=== PATIENT | female | born 1960 | race Caucasian/White ===

== ENCOUNTER → 2023-08-07 12:32 | Outpatient (REF) | payer OTHER, SELFPAY | LOC: DHCBC/DCA 12:32 | PROVIDERS: ATTENDING PHYSICIAN Internal Medicine Cardiovascular Disease; FAMILY PHYSICIAN Family Medicine | DX: I50.32 Chronic diastolic (congestive) heart failure (principal) | CPT/HCPCS: 78452; 93017; A9500; J2785 ==

== ENCOUNTER → 2023-08-08 07:23 | Outpatient (REF) | payer OTHER, SELFPAY ==
[2023-08-08 07:55] VITALS: BP 97/73
[2023-08-08 08:33] LABS: % Basophils 2.3 % (0-2); % Eosinophils 1.4 % (0-6); % Immature Granulocytes 0.2 % (0-0.5); % Lymphocytes 25.8 % (20.5-51.1); % Monocytes 9.2 % (1.7-9.3); % Neutrophils 61.1 % (42.2-75.2); Absolute Basophils 0.1 10^3/uL (0-0.2); Absolute Eosinophils 0.1 10^3/uL (0-0.7); Absolute Lymphocytes 1.5 10^3/uL (1.2-3.4); Absolute Monocytes 0.5 10^3/uL (0.1-0.6); Absolute Neutrophils 3.5 10^3/uL (1.4-6.5); Hematocrit 25.2 % (37.0-47.0); Hemoglobin 8.3 g/dL (12.0-16.0); Mean Corp Hgb Conc. 32.9 g/dL (33.0-37.0); Mean Corpuscular Hgb 27.1 pg (27.0-31.0); Mean Corpuscular Volume 82.4 fL (81.0-99.0); Mean Platelet Volume 10.8 fL (7.4-10.4); Nucleated Red Blood Cells % 0 %; Platelet Count 399 10^3/uL (130-400); Red Blood Cell Count 3.06 10^6/uL (4.20-5.40); Red Cell Dist. Width 18.4 % (11.5-14.5); White Blood Cell Count 5.7 10^3/uL (4.8-10.8)
[2023-08-08] MEDS: ATIVAN 0.5 MG IV (08:42)
[2023-08-08] MEDS: NSS (PRESERVATIVE FREE) 0.25 ML IV (08:42)
[2023-08-08] MEDS: FLUSH (NSS) 1 FLUSH IV (08:43)
[2023-08-08 08:52] LABS: INR 1.13; PT 14.3 Sec (11.4-14.6)
[2023-08-08 09:25] VITALS: BP 107/72; BP_SYST 94
[2023-08-08 09:30] VITALS: BP 101/77; BP_SYST 94
[2023-08-08 09:35] VITALS: BP 109/78; BP_SYST 93
[2023-08-08 09:55] VITALS: BP 104/77
== END ==
LOC: RADI 07:23
PROVIDERS: ATTENDING PHYSICIAN Internal Medicine Hematology & Oncology; FAMILY PHYSICIAN Family Medicine
DX: D64.9 Anemia, unspecified (principal); D68.8 Other specified coagulation defects
CPT/HCPCS: 88305; 88311; 88312; 36415; 38222; 77012; 85025; 85610; 88313; 88341; 88342

== ENCOUNTER → 2024-01-12 06:38 | Day surgery (SDC) | payer OTHER, SELFPAY | LOC: GI 06:38 | PROVIDERS: ATTENDING PHYSICIAN Internal Medicine | DX: K57.30 Diverticulosis of large intestine without perforation or abscess without bleeding (principal); K63.5 Polyp of colon; K31.89 Other diseases of stomach and duodenum; D50.9 Iron deficiency anemia, unspecified; Z98.84 Bariatric surgery status; Z98.0 Intestinal bypass and anastomosis status | CPT/HCPCS: 45380; 43239; 88305; 88342 ==

== ENCOUNTER 2024-03-02 10:28 | Emergency (ER) | payer OTHER, SELFPAY ==
[2024-03-02 10:31] VITALS: BP 104/72
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
[2024-03-02] MEDS: NORCO 5/325 1 TABLET PO (11:33)
[2024-03-02 11:46] VITALS: BMI 21.1
== END 2024-03-02 12:07 | disposition home or self-care (01) ==
LOC: EMR 10:28
PROVIDERS: EMERGENCY PHYSICIAN Emergency Medicine; FAMILY PHYSICIAN Family Medicine
DX: S80.02XA Contusion of left knee, initial encounter (principal); W01.0XXA Fall on same level from slipping, tripping and stumbling without subsequent striking against object, initial encounter; Y93.01 Activity, walking, marching and hiking; I48.91 Unspecified atrial fibrillation; F41.8 Other specified anxiety disorders; E03.9 Hypothyroidism, unspecified; Z90.710 Acquired absence of both cervix and uterus; Z96.652 Presence of left artificial knee joint; Z98.84 Bariatric surgery status
CPT/HCPCS: 99283; 29505; 73564

== ENCOUNTER → 2024-06-08 08:06 | Outpatient (REF) | payer OTHER, SELFPAY | LOC: WDC 08:06 | PROVIDERS: ATTENDING PHYSICIAN Family Medicine | DX: Z12.31 Encounter for screening mammogram for malignant neoplasm of breast (principal) | CPT/HCPCS: 77063; 77067 ==

== ENCOUNTER → 2024-09-30 07:28 | Outpatient (REF) | payer OTHER, SELFPAY | LOC: RAD 07:28 | PROVIDERS: ATTENDING PHYSICIAN Family Medicine | DX: M81.0 Age-related osteoporosis without current pathological fracture (principal) | CPT/HCPCS: 77080 ==

== ENCOUNTER → 2024-11-10 09:07 | Outpatient (REF) | payer OTHER, SELFPAY | LOC: RAD 09:07 | PROVIDERS: ATTENDING PHYSICIAN Student in an Organized Health Care Education/Training Program; FAMILY PHYSICIAN Family Medicine | DX: K74.3 Primary biliary cirrhosis (principal); M81.0 Age-related osteoporosis without current pathological fracture; R29.890 Loss of height; R74.8 Abnormal levels of other serum enzymes | CPT/HCPCS: 72040; 72072; 72114 ==

== ENCOUNTER 2025-05-13 15:10 | Inpatient (IN) | payer OTHER, SELFPAY ==
[2025-05-13] VITALS (19 sets, daily range): BP systolic 95–116; BP diastolic 65–83; PULSE 85–108; BMI 22.0; BMI 20.9
--- NOTE | 2025-05-13 09:03 | EDRN ---
Madai IRVIN in room w/ pt.
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
[2025-05-13 10:18] LABS: D-Dimer 2.00 ug/mlFEU (0.00-0.50)
[2025-05-13 10:50] LABS: Hematocrit 27.6 % (37.0-47.0); Hemoglobin 9.2 g/dL (12.0-16.0); Mean Corp Hgb Conc. 33.3 g/dL (33.0-37.0); Mean Corpuscular Volume 103.4 fL (81.0-99.0); Nucleated Red Blood Cells % 0 %; Platelet Count 380 10^3/uL (130-400); Red Cell Dist. Width 14.7 % (11.5-14.5)
--- NOTE | 2025-05-13 10:52 | EDRN ---
Attempted IV access in R AC w/ #20 P at 9:30 only able to obtain 2 tubes of blood which were sent to lab unable to thread IV so had to discontinue it. At 9:50 again attempted for IV access in R AC but unable to get any labs and pt claimed pain on
flushing IV so had to be discontinued. Not seeing any other veins to try this RN TT'd VAT RN. VAT RN obtained access #22 P in R hand though D-Dimer is up so need CT PE study so Reattempted #20 P IV access in L AC and successful. TT sent to [facility].
Eddie IRVIN so pt is ready for CT PE study now.
[2025-05-13] MEDS: ATIVAN 1 MG PO (11:11)
[2025-05-13 11:16] LABS: Troponin I 0.018 ng/ml
[2025-05-13 11:28] LABS: ALT (SGPT) 21 U/L (0-35); AST (SGOT) 35 U/L (14-36); Albumin 2.2 g/dl (3.5-5.0); Alkaline Phosphatase 214 U/L (38-126); Blood Urea Nitrogen 13 mg/dl (7-17); Calcium 7.8 mg/dl (8.4-10.2); Carbon Dioxide 32 mmol/L (22-30); Chloride 103 mmol/L (98-107); Estimated Creatinine Clearance 66 ml/min; Glucose 80 mg/dl (70-99); Lipase 18 U/L (23-300); Magnesium 1.8 mg/dl (1.6-2.3); Potassium 4.2 mmol/L (3.5-5.1); Sodium 133 mmol/L (135-145); Total Protein 5.4 g/dl (6.3-8.2); eGFR > 60.00
--- NOTE | 2025-05-13 11:40 | EDRN ---
Pt had sl lightheadedness on standing.
[2025-05-13 12:45] LABS: Folate 4.7 ng/ml (2.76-20); Vitamin B12 944 pg/ml (239-931)
--- NOTE | 2025-05-13 13:31 | EDRN ---
Madai IRVIN was in to see pt. Pt is awaiting admission.
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
--- NOTE | 2025-05-13 14:20 | EDRN ---
Resident MD Dr. Gant in to see pt.
--- NOTE | 2025-05-13 14:25 | EDRN ---
Pt unable to get OOB to [facility] and due to lasix to be administered pt placed on purewyck at this time.
[2025-05-13] MEDS: LASIX 20 MG IV (14:29)
--- NOTE | 2025-05-13 15:19 | CM ---
Addendum entered by Zari Greene 05/13/25 16:14:
Patient changed to INP status per physician and cardiac RETAIL EXPERIENCE SPECIALIST.
Original Note:
Patient seen at bedside in ED with patient family. Patient states that she lives in a 2 story home with a walker, rollator and cane. Patient PCP is Dr. Mercado and she uses the [facility] on [address]. Patient plan is for discharge home with VN vs home with
no needs. Patient has had home health from [facility] in the past. Patient is a volunteer here at for many years.
Patient is being admitted as OBS/Rowan. CM will provide OBS/ROWAN form and provide signed form to [facility]. CM will continue to follow for discharge planning needs.
Plan; home with VN vs home with no needs.
[2025-05-13] MEDS: NORCO 5/325 1 TABLET PO ×2 (15:26→21:08)
--- NOTE | 2025-05-13 15:52 | CON.CAR ---
Addendum entered and electronically signed by Ricardo Smalls MD 05/13/25 16:49:
Patient seen and examined
Agree with CAMRON Dixon's note and assessment
Agree with CAMRON Dixon's plan
Reviewed prior records and discussed with patient and at the bedside details of clinical course
Exam:
Alert and x 3
Nonfocal neurologically
JVP is relatively 6
Cor regular no murmurs rubs or gallops
Lungs diminished at the bases bilaterally no respiratory distress
Abdomen soft nontender positive bowel sounds
Trace extremity edema
Primary Rubber Stamp Die Inspector: Dr. Angélica Mcmillan
Assessment:
Presentation with APARICIO, LE edema
Acute on chronic HFpEF
Left anterior fascicular block
History of AVNRT with distant ablation
Moderate coronary calcifications previously seen on CT scan
Hyperlipidemia, history of statin intolerance
History of pulmonary nodule
Chronic anemia
History of thrombocytosis
History of complicated exploratory laparotomy, lysis of adhesions, ileocecectomy, repair gastrotomy with bilateral transversus abdominis myofascial releases and open repair of incisional hernia with mesh 2020
History of cirrhosis/alcoholism
History of gastric bypass surgery
ECHO 03/04/23: EF 61%, mild MR, mild MAC, mild AR, mild TR, PAP 27 mmHg
Plan:
- Patient presents with symptoms of dyspnea on exertion and lower extremity edema, worsening over the last several weeks. proBNP 1330 and chest x-ray with evidence of small bilateral pleural effusions consistent with acute heart failure
exacerbation.
- Agree with diuresis with IV Lasix. She was taking 20 mg p.o. as needed in the outpatient setting. Creatinine stable. She received dose of IV Lasix in ER and is responding well. Would be reasonable to consider low-dose daily Lasix 20 mg daily
at discharge.
- CHF education. Discussed fluid and salt restricted diet. She also has history of gastric bypass surgery with overall weight loss and prior issues with malnutrition. Will consult dietary. Patient requests clear ensure BID
- Last echo from 02/2023 with results as above, will repeat
- Follow on telemetry. EKG reviewed, sinus rhythm with LAFB. She has history of AVNRT with prior distant ablation
- She is listed as being on Lopressor 25 mg daily as outpatient. Would consider transitioning to Toprol 25 mg daily as BP able to tolerate
- Check TSH
- Discussed with patient and at bedside
Original Note:
Consultation
Consultation Request
Date/Time Consultation Performed: 05/13/25
Requesting Provider: Dr. Do
Performing Provider: Lois Dixon PA-C for Dr. Smalls
Reason for Consultation: CHF
Medical History
-
Chief Complaint: SOB
History of Present Illness:
Patient is a 64-year-old female with past medical history of chronic heart failure with preserved EF, known left anterior fascicular block, hyperlipidemia, history of AVNRT with prior distant ablation, moderate coronary calcifications previously
seen on CT scan with history of statin intolerance, who presented to [facility] for evaluation of dyspnea on exertion. She reports this has been progressively worsening over the last couple weeks. She reports associated lower extremity edema. She
reports overall over the last several weeks she has noted weight loss, however has not weighed herself since noting worsening edema. She states she takes furosemide 20 mg on an as needed basis only. She is unsure of her dry weight, stating at 1
point she was down to 104, however also throws out 108. She also reports last week she had a fall where she tripped over the threshold to her bathroom and hit her breastbone on the bathtub. She denies loss of consciousness with the event. proBNP
1330. Chest x-ray with evidence of small bilateral pleural effusions.
PMH:
Chronic HFpEF
Left anterior fascicular block
History of AVNRT with distant ablation
Moderate coronary calcifications previously seen on CT scan
Hyperlipidemia, history of statin intolerance
History of pulmonary nodule
Chronic anemia
History of thrombocytosis
History of complicated exploratory laparotomy, lysis of adhesions, ileocecectomy, repair gastrotomy with bilateral transversus abdominis myofascial releases and open repair of incisional hernia with mesh 2020
History of cirrhosis/alcoholism
History of gastric bypass surgery
Past Medical History
Past Medical History: Other (in HPI)
Social History
Tobacco: Former Smoker
Alcohol: Occasional
Personal:
Living: With Family
Family History
Family History: Cancer
Allergies / Home Medications
Allergy/AdvReac Type Severity Reaction Status Date / Time
mollusks Allergy Vomiting Verified 05/13/25 08:14
Penicillins Allergy Hives Verified 05/13/25 08:14
shellfish derived Allergy CLAMS-VOMIT Verified 05/13/25 08:14
ING
Mdpkzoq-IIJ-QgQ Reductase Allergy MUSCLE Verified 05/13/25 08:14
Inhibitor (Palvaps-Xmq-Gji CRAMPS
Reductase Inhibitor)
�Medication �Instructions �Recorded �Confirmed �Type
ursodiol 500 mg tablet 500 mg PO BID Urinary issue 08/02/20 05/13/25 History
omeprazole 40 mg capsule,delayed 40 mg PO DAILY Gastrointestinal 11/23/20 05/13/25 History
release issue
vitamin E (dl, acetate) 180 mg 400 units PO DAILY Supplement 11/23/20 05/13/25 History
(400 unit) capsule
cholecalciferol (vitamin D3) 50 50 mcg PO DAILY Supplement ##0 12/29/20 05/13/25 History
mcg (2,000 unit) capsule (Vitamin
D3)
cyanocobalamin (vitamin B-12) 2,000 mcg PO DAILY Supplement 01/05/21 05/13/25 History
1,000 mcg tablet
levothyroxine 50 mcg tablet 50 mcg PO DAILY AT 0700 Thyroid 01/05/21 05/13/25 History
metoprolol tartrate 25 mg tablet 25 mg PO DAILY 11/26/22 05/13/25 History
multivitamin 1 tab PO DAILY 11/26/22 05/13/25 History
ezetimibe 10 mg tablet (Zetia) 10 mg PO DAILY 08/08/23 05/13/25 History
hydrocodone 5 mg-acetaminophen 325 1 tab PO TID 05/13/25 05/13/25 History
mg tablet
venlafaxine 150 mg 150 mg PO DAILY Mental 05/13/25 05/13/25 History
capsule,extended release 24 hr Health/Anxiety
(Effexor XR)
venlafaxine 37.5 mg 37.5 mg PO DAILY Mental 05/13/25 05/13/25 History
capsule,extended release 24 hr Health/Anxiety
(Effexor XR)
Review of Systems
-
History Source: Patient and Family
All other systems: Negative unless noted
Physical Exam
Vital Signs
Temp Pulse Resp BP Pulse Ox
97.8 F 101 15 102/70 99
05/13/25 08:15 05/13/25 15:15 05/13/25 15:15 05/13/25 15:00 05/13/25 14:45
Lab Results
05/13/25 10:43
05/13/25 10:43
Troponin I 0.018 ng/ml 05/13/25 10:43
Gaa-L-Mhquywcwizh Pept 1330 pg/ml 05/13/25 10:43
Physical Exam
General: No Apparent Distress, Comfortable and Other (cachectic)
HEENT: Normocephalic, Anicteric and Moist Mucous Membranes
Respiratory: Crackles and Non Labored Respirations
Cardiac: S1/S2, Regular Rhythm and Other (tachy)
GI: Soft, Non Tender, Non Distended and Normal Bowel Sounds
Musculoskeletal: No Clubbing, No Cyanosis and Edema (2-3+ edema of B/L LE)
Skin: Warm and Dry
Neuro: AO x 3
Impression / Plan
-
Primary Rubber Stamp Die Inspector: Dr. Angélica Mcmillan
Assessment:
Presentation with APARICIO, LE edema
Acute on chronic HFpEF
Left anterior fascicular block
History of AVNRT with distant ablation
Moderate coronary calcifications previously seen on CT scan
Hyperlipidemia, history of statin intolerance
History of pulmonary nodule
Chronic anemia
History of thrombocytosis
History of complicated exploratory laparotomy, lysis of adhesions, ileocecectomy, repair gastrotomy with bilateral transversus abdominis myofascial releases and open repair of incisional hernia with mesh 2020
History of cirrhosis/alcoholism
History of gastric bypass surgery
ECHO 03/04/23: EF 61%, mild MR, mild MAC, mild AR, mild TR, PAP 27 mmHg
Plan:
- Patient presents with symptoms of dyspnea on exertion and lower extremity edema, worsening over the last several weeks. proBNP 1330 and chest x-ray with evidence of small bilateral pleural effusions consistent with acute heart failure
exacerbation.
- Agree with diuresis with IV Lasix. She was taking 20 mg p.o. as needed in the outpatient setting. Creatinine stable. She received dose of IV Lasix in ER and is responding well
- CHF education. Discussed fluid and salt restricted diet. She also has history of gastric bypass surgery with overall weight loss and prior issues with malnutrition. Will consult dietary. Patient requests clear ensure BID
- Last echo from 02/2023 with results as above, will repeat
- Follow on telemetry. EKG reviewed, sinus rhythm with LAFB. She has history of AVNRT with prior distant ablation
- She is listed as being on Lopressor 25 mg daily as outpatient. Would consider transitioning to Toprol 25 mg daily as BP able to tolerate
- Unclear if candidate for SGLT2 inhibitor, but would consider
- Check TSH
- Discussed with patient and at bedside
- Discussed with hospitalist service
Data Reviewed
-
EKG: Tracing Personally Visualized and interpreted
Radiology: Report Reviewed by me
Medical Tests (Nuc Med, Echo etc): Report Reviewed by me
Labs: Labs Reviewed by me
Old Records: Reviewed
--- NOTE | 2025-05-13 16:25 | EDRN ---
Pt attempting to order supper at this time.
[2025-05-13] MEDS: ZOFRAN 4 MG IV (18:28)
--- NOTE | 2025-05-13 18:34 | EDRN ---
Pt having nausea after eating only half a sandwich of her dinner. Pt medicated after verbal order from Dr. Do for 4 mg of IV zofran.
--- NOTE | 2025-05-13 19:30 | PTCARENOTE ---
Received patient from ED. Patient AAOx3, ambulated to the bedside with one assist. Patient assessed. VSS. Sinus rhythm, Sinus tach on the monitor. Patient oriented to the unit. Call cummings in reach. Patient verbalized an understanding to ring for all
transfers. Bed alarm placed for safety.
[2025-05-13] MEDS: PROTONIX 40 MG PO (20:14)
[2025-05-13] MEDS: ZETIA 10 MG PO (20:14)
[2025-05-13] MEDS: VITAMIN B-12 2000 MCG PO (20:14)
[2025-05-13] MEDS: URSO PO (20:15)
[2025-05-14 03:36] VITALS: BP 102/67
[2025-05-14] MEDS: SYNTHROID 50 MCG PO (05:28)
[2025-05-14 06:00] VITALS: BMI 21.1
[2025-05-14 06:11] LABS: Hematocrit 28.1 % (37.0-47.0); Hemoglobin 9.5 g/dL (12.0-16.0); Mean Corp Hgb Conc. 33.8 g/dL (33.0-37.0); Mean Corpuscular Volume 101.8 fL (81.0-99.0); Nucleated Red Blood Cells % 0 %; Platelet Count 395 10^3/uL (130-400); Red Cell Dist. Width 15.2 % (11.5-14.5)
[2025-05-14 06:34] LABS: ALT (SGPT) 20 U/L (0-35); AST (SGOT) 30 U/L (14-36); Albumin 2.1 g/dl (3.5-5.0); Alkaline Phosphatase 198 U/L (38-126); Blood Urea Nitrogen 13 mg/dl (7-17); Calcium 7.6 mg/dl (8.4-10.2); Carbon Dioxide 31 mmol/L (22-30); Chloride 104 mmol/L (98-107); Estimated Creatinine Clearance 66 ml/min; Glucose 63 mg/dl (70-99); Potassium 3.9 mmol/L (3.5-5.1); Sodium 136 mmol/L (135-145); Total Protein 5.1 g/dl (6.3-8.2); eGFR > 60.00
[2025-05-14 07:00] VITALS: BP 95/63
[2025-05-14] MEDS: VITAMIN B-12 2000 MCG PO (08:34)
[2025-05-14] MEDS: VITAMIN D3 (cholecalciferol) 50 MCG PO (08:34)
[2025-05-14] MEDS: ZETIA 10 MG PO (08:34)
[2025-05-14] MEDS: THERAGRAN 1 TABLET PO (08:34)
[2025-05-14] MEDS: URSO 500 MG PO ×2 (08:35→20:18)
[2025-05-14] MEDS: EFFEXOR XR 150 MG PO (08:35)
[2025-05-14] MEDS: NORCO 5/325 1 TABLET PO ×3 (08:35→22:22)
[2025-05-14] MEDS: VITAMIN E 400 UNITS PO (08:35)
[2025-05-14] MEDS: EFFEXOR XR 37.5 MG PO (08:35)
--- NOTE | 2025-05-14 08:37 | W.PN.HOSP.TC ---
Today's Communication/Plan
-
see plan
Assessment / Plan
Assessment / Plan
Gen: NAD, AAOx3, appears chronically ill and malnourished.
Eyes: EOMI, PERRLA, no scleral icterus.
Neck: supple.
CV: RRR, +S1/S2, no m/r/g.
Resp: faint rales and dec BS R base.
Abd: +BS, soft, NT, ND
Skin: No rashes.
Neuro: CN 2-12 intact, non-focal.
Psych: Normal mood and affect.
CT A/P:
1. No evidence of pulmonary embolism or thoracic aortic dissection.
2. Small bilateral pleural effusions, right greater than left.
3. Minimal hazy opacity at the right lung base, which may represent pneumonia or subsegmental atelectasis.
4. Mild diffuse soft tissue anasarca.
5. Mild coronary arterial calcification. Please correlate with symptoms of and risk factors for coronary artery disease, with further workup as clinically appropriate.
CT brain: No acute intracranial abnormality.
Acute HFpEF:
-proBNP 1330
-check echo
-s/p Lasix 20mg IV in the ER, further lasix dosing limited by BP
-saturating well on RA, currently not tachypneic
-with reports of lightheadedness check orthostatic vital signs (reported NEG on admission)
-start Midodrine 5mg PO TID to tx hypotension so that BB can be restarted and further lasix can be given
-cards following, discussed with cardiology
Other problems:
PAF: h/o ablation, not on AC [employer] (fall risk), holding home BB with hypotension
PBC: cont Ursodiol
Alcohol abuse disorder
Hypothyroidism: cont Levoxyl, TSH normal
Anxiety/Depression: cont Venlafaxine/Klonopin
GERD: cont PPI
HLD: cont Zetia
FULL/Lovenox
Total time spent on today's encounter was 50 minutes which included time spent in counseling the patient/family regarding diagnosis and treatment plan as listed above, goals of care, and symptom management. Case was discussed with nursing staff,
specialists, and care coordinators/case management. All labs and imaging personally reviewed by me. Remainder the time spent in detailed review of previous records, lab data, imaging, and other medical provider documentation.
Anticipated Discharge: 24 - 48 hours
Subjective/Interval History
-
Date of Service: May 14, 2025
Currently denies SOB.
Objective Data
-
Labs:
Laboratory Results
05/14/25
05:52
WBC 7.1
Hgb 9.5 L
Hct 28.1 L
Plt Count 395
Sodium 136
Potassium 3.9
Chloride 104
Carbon Dioxide 31 H
BUN 13
Creatinine 0.6
Glucose 63 L
Calcium 7.6 L
Total Bilirubin 0.3
AST 30
ALT 20
Alkaline Phosphatase 198 H
Vital Signs:
Vital Signs
Temp Pulse Resp BP Pulse Ox
98.3 F 111 18 95/63 98
05/14/25 07:00 05/14/25 07:00 05/14/25 07:00 05/14/25 07:00 05/14/25 07:00
I&O
05/13/25 05/14/25 05/15/25
06:59 06:59 06:59
Intake Total 240 / 240
Output Total 800 / 800
Balance -560 / -560
[2025-05-14] MEDS: PROTONIX PO (08:40)
[2025-05-14] MEDS: KLONOPIN 0.5 MG PO ×3 (10:04→22:22)
[2025-05-14 11:55] VITALS: BP 98/65
--- NOTE | 2025-05-14 13:06 | PTCARENOTE ---
Pt is refusing her Lovonox injections
--- NOTE | 2025-05-14 13:59 | W.PN.CARDCBS ---
Today's Communication / Plan
-
Start midodrine to augment blood pressure
Continued efforts for diuresis
Impression / Plan
-
Primary Mail Officer: Dr. Angélica Mcmillan
Assessment:
Presentation with APARICIO, LE edema
Acute on chronic HFpEF
Left anterior fascicular block
History of AVNRT with distant ablation
Moderate coronary calcifications previously seen on CT scan
Hyperlipidemia, history of statin intolerance
History of pulmonary nodule
Chronic anemia
History of thrombocytosis
History of complicated exploratory laparotomy, lysis of adhesions, ileocecectomy, repair gastrotomy with bilateral transversus abdominis myofascial releases and open repair of incisional hernia with mesh 2020
History of cirrhosis/alcoholism
History of gastric bypass surgery
ECHO 03/04/23: EF 61%, mild MR, mild MAC, mild AR, mild TR, PAP 27 mmHg
Plan:
- Patient presents with symptoms of dyspnea on exertion and lower extremity edema, worsening over the last several weeks. proBNP 1330 and chest x-ray with evidence of small bilateral pleural effusions consistent with acute heart failure
exacerbation.
-proBNP 1330
-She responded well to IV Lasix yesterday in the ER however blood pressures have been soft
-Not requiring supplemental O2
- Spoke with hospitalist and will start midodrine 5 mg 3 times daily for blood pressure during diuresis as well as initiating goal-directed medical therapy. Follow orthostatic blood pressure
- Will reassess blood pressure this afternoon and give another dose of Lasix IV 20 mg
- She was taking 20 mg p.o. as needed in the outpatient setting.
- Creatinine stable.
- CHF education.
-Plan to repeat echocardiogram on Friday.
- Follow on telemetry. EKG reviewed, sinus rhythm with LAFB. She has history of AVNRT with prior distant ablation
- Unclear if candidate for SGLT2 inhibitor, but would consider
-TSH 3.8
- Discussed with hospitalist service
Progress Note - Mail Officer
Subjective
Date of Service: May 14, 2025
Patient seen and examined overall feeling better with less shortness of breath since admission. No chest pain or pressure
Objective
Labs:
05/14/25 05:52
05/14/25 05:52
Labs
Hgb 9.5 g/dL (12.0-16.0) L 05/14/25 05:52
Hct 28.1 % (37.0-47.0) L 05/14/25 05:52
Plt Count 395 10^3/uL (130-400) 05/14/25 05:52
Sodium 136 mmol/L (135-145) 05/14/25 05:52
Potassium 3.9 mmol/L (3.5-5.1) 05/14/25 05:52
BUN 13 mg/dl (7-17) 05/14/25 05:52
Creatinine 0.6 mg/dL (0.6-1.0) 05/14/25 05:52
Glucose 63 mg/dl (70-99) L 05/14/25 05:52
Troponins
05/13/25
10:43
Troponin I 0.018
Vital Signs and I&O:
Vital Signs
Temp Pulse Resp BP Pulse Ox
99.2 F 80 18 98/65 98
05/14/25 11:55 05/14/25 11:55 05/14/25 07:00 05/14/25 11:55 05/14/25 11:55
Vital Signs
Temp Pulse Resp BP Pulse Ox
99.2 F 80 18 98/65 98
05/14/25 11:55 05/14/25 11:55 05/14/25 07:00 05/14/25 11:55 05/14/25 11:55
Intake & Output
05/12/25 05/13/25 05/14/25 05/15/25
06:59 06:59 06:59 06:59
Intake Total 240 / 240
Output Total 800 / 800
Balance -560 / -560
Physical Exam
Physical Exam
General: Awake alert and oriented. 64-year-old female who appears older than stated age; frail
HEENT: mmm
Respiratory: Bronchovesicular breath sounds, decreased at the bases with fine crackles
Cardiac: Regular. Positive S1-S2. No murmurs
GI: Soft, Non Tender, Non Distended and Normal Bowel Sounds
Musculoskeletal: ++ edema of B/L LE
[2025-05-14 15:35] VITALS: BP 105/70; BP 98/62; BP 99/69; PULSE 108; PULSE 111; PULSE 128
[2025-05-14 19:15] VITALS: BP 96/60
[2025-05-14 23:25] VITALS: BP 94/62
[2025-05-15] VITALS (7 sets, daily range): BP systolic 81–112; BP diastolic 51–76; PULSE 69; O2SAT 92; BMI 20.6
[2025-05-15] MEDS: SYNTHROID 50 MCG PO (06:02)
--- NOTE | 2025-05-15 08:28 | W.PN.HOSP.TC ---
Today's Communication/Plan
-
see plan
Assessment / Plan
Assessment / Plan
Gen: NAD, AAOx3, appears chronically ill and malnourished.
Eyes: EOMI, PERRLA, no scleral icterus.
Neck: supple.
CV: remains RRR, +S1/S2, no m/r/g.
Resp: faint rales and dec BS in the bases.
Abd: +BS, soft, NT, ND
Skin: No rashes.
Neuro: remains CN 2-12 intact, non-focal.
Psych: Normal mood and affect.
CT A/P:
1. No evidence of pulmonary embolism or thoracic aortic dissection.
2. Small bilateral pleural effusions, right greater than left.
3. Minimal hazy opacity at the right lung base, which may represent pneumonia or subsegmental atelectasis.
4. Mild diffuse soft tissue anasarca.
5. Mild coronary arterial calcification. Please correlate with symptoms of and risk factors for coronary artery disease, with further workup as clinically appropriate.
CT brain: No acute intracranial abnormality.
Acute HFpEF:
-proBNP 1330
-check echo
-s/p Lasix 20mg IV in the ER, further lasix dosing limited by BP
-saturating well on RA, currently not tachypneic
-orthostatic VS POS by HR 15
-Midodrine 5mg PO TID started, increase to 10mg PO BID to tx hypotension so that BB can be restarted and further lasix can be given
-cards following
Other problems:
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
PBC: cont Ursodiol
Alcohol abuse disorder
Hypothyroidism: cont Levoxyl, TSH normal
Anxiety/Depression: cont Venlafaxine/Klonopin
GERD: cont PPI
HLD: cont Zetia
Hyponatremia, resolved
RN updated, discussed with cards
FULL/Lovenox
Anticipated Discharge: 24 - 48 hours
Subjective/Interval History
-
Date of Service: May 15, 2025
Denies SOB.
Objective Data
-
Vital Signs:
Vital Signs
Temp Pulse Resp BP Pulse Ox
97.9 F 90 18 95/62 98
05/15/25 06:59 05/15/25 06:59 05/15/25 06:59 05/15/25 06:59 05/15/25 06:59
I&O
05/14/25 05/15/25 05/16/25
06:59 06:59 06:59
Intake Total 240 / 240 860 / 860
Output Total 800 / 800 375 / 375
Balance -560 / -560 485 / 485
[2025-05-15] MEDS: VITAMIN B-12 2000 MCG PO (08:31)
[2025-05-15] MEDS: KLONOPIN 0.5 MG PO ×3 (08:31→21:27)
[2025-05-15] MEDS: URSO 500 MG PO ×2 (08:31→20:07)
[2025-05-15] MEDS: VITAMIN E 400 UNITS PO (08:31)
[2025-05-15] MEDS: NORCO 5/325 1 TABLET PO ×3 (08:32→21:27)
[2025-05-15] MEDS: PROTONIX PO (08:32)
[2025-05-15] MEDS: ZETIA 10 MG PO (08:32)
[2025-05-15] MEDS: EFFEXOR XR 37.5 MG PO (08:32)
[2025-05-15] MEDS: EFFEXOR XR 150 MG PO (08:32)
[2025-05-15] MEDS: VITAMIN D3 (cholecalciferol) 50 MCG PO (08:32)
[2025-05-15] MEDS: THERAGRAN 1 TABLET PO (08:36)
--- NOTE | 2025-05-15 12:28 | W.PN.CARDCBS ---
Today's Communication / Plan
-
Add midodrine
Add compression stockings
Hopefully can give another dose of IV Lasix this afternoon
Echocardiogram on Friday
Impression / Plan
-
Primary Dean Of Girls: Dr. Angélica Mcmillan
Assessment:
Presentation with APARICIO, LE edema
Acute on chronic HFpEF
Left anterior fascicular block
History of AVNRT with distant ablation
Moderate coronary calcifications previously seen on CT scan
Hyperlipidemia, history of statin intolerance
History of pulmonary nodule
Chronic anemia
History of thrombocytosis
History of complicated exploratory laparotomy, lysis of adhesions, ileocecectomy, repair gastrotomy with bilateral transversus abdominis myofascial releases and open repair of incisional hernia with mesh 2020
History of cirrhosis/alcoholism
History of gastric bypass surgery
ECHO 03/04/23: EF 61%, mild MR, mild MAC, mild AR, mild TR, PAP 27 mmHg
Plan:
- Patient presents with symptoms of dyspnea on exertion and lower extremity edema, worsening over the last several weeks. proBNP 1330 and chest x-ray with evidence of small bilateral pleural effusions consistent with acute heart failure
exacerbation.
-proBNP 1330
-She responded well to IV Lasix yesterday in the ER
- Not requiring supplemental O2
-Low blood pressures have prevented us from giving further IV Lasix however weights continue to decrease.
- Agree with increasing midodrine to 10 mg TID which was already done by hospitalist
- Monitor orthostatics
- Will reassess blood pressure this afternoon and give another dose of Lasix IV 20 mg
- She was taking 20 mg p.o. as needed in the outpatient setting.
- Creatinine stable.
- CHF education.
-Plan to repeat echocardiogram on Friday.
- Follow on telemetry. EKG reviewed, sinus rhythm with LAFB. She has history of AVNRT with prior distant ablation
- Will add SGLT2 inhibitor if not cost prohibitive. Case management consulted
-TSH 3.8
Progress Note - Dean Of Girls
Subjective
Date of Service: May 15, 2025
Seen and examined sitting out of bed to chair. She states that she feels so much better and denies chest pain or pressure, shortness of breath with room ambulation and improved cough. No dizziness or lightheadedness.
Objective
Labs:
05/14/25 05:52
05/14/25 05:52
Labs
Hgb 9.5 g/dL (12.0-16.0) L 05/14/25 05:52
Hct 28.1 % (37.0-47.0) L 05/14/25 05:52
Plt Count 395 10^3/uL (130-400) 05/14/25 05:52
Sodium 136 mmol/L (135-145) 05/14/25 05:52
Potassium 3.9 mmol/L (3.5-5.1) 05/14/25 05:52
BUN 13 mg/dl (7-17) 05/14/25 05:52
Creatinine 0.6 mg/dL (0.6-1.0) 05/14/25 05:52
Glucose 63 mg/dl (70-99) L 05/14/25 05:52
Troponins
05/13/25
10:43
Troponin I 0.018
Vital Signs and I&O:
Vital Signs
Temp Pulse Resp BP Pulse Ox
97.9 F 90 18 95/62 98
05/15/25 06:59 05/15/25 06:59 05/15/25 06:59 05/15/25 06:59 05/15/25 11:23
Vital Signs
Temp Pulse Resp BP Pulse Ox
97.9 F 90 18 95/62 98
05/15/25 06:59 05/15/25 06:59 05/15/25 06:59 05/15/25 06:59 05/15/25 11:23
Intake & Output
05/13/25 05/14/25 05/15/25 05/16/25
06:59 06:59 06:59 06:59
Intake Total 240 / 240 860 / 860
Output Total 800 / 800 375 / 375
Balance -560 / -560 485 / 485
Physical Exam
Physical Exam
General: Awake alert and oriented. 64-year-old female who appears older than stated age; frail
HEENT: mmm
Respiratory: Bronchovesicular breath sounds, decreased at the bases with fine crackles
Cardiac: Regular. Positive S1-S2. No murmurs
GI: Soft, Non Tender, Non Distended and Normal Bowel Sounds
Musculoskeletal: +edema of B/L LE
[2025-05-15] MEDS: FLUSH (NSS) 2 FLUSH IV ×2 (13:05→17:12)
[2025-05-15] MEDS: ZOFRAN 4 MG IV (13:05)
--- NOTE | 2025-05-15 15:39 | CM ---
CM consult for med pricing
Call to [facility] and closed on Sundays [phone]
CM to follow up during business hours
[2025-05-15] MEDS: LASIX 20 MG IV (17:32)
[2025-05-16] VITALS (7 sets, daily range): BP systolic 82–118; BP diastolic 48–79; PULSE 78–103; O2SAT 95–96; BMI 20.3
[2025-05-16] MEDS: SYNTHROID 50 MCG PO (05:32)
[2025-05-16 07:22] LABS: Hematocrit 28.3 % (37.0-47.0); Hemoglobin 9.8 g/dL (12.0-16.0); Mean Corp Hgb Conc. 34.6 g/dL (33.0-37.0); Mean Corpuscular Volume 102.5 fL (81.0-99.0); Platelet Count 378 10^3/uL (130-400); Red Cell Dist. Width 15.6 % (11.5-14.5)
[2025-05-16] MEDS: ZETIA 10 MG PO (07:54)
[2025-05-16] MEDS: VITAMIN E 400 UNITS PO (07:54)
[2025-05-16] MEDS: NORCO 5/325 1 TABLET PO ×2 (07:54→15:58)
[2025-05-16] MEDS: EFFEXOR XR 150 MG PO (07:54)
[2025-05-16] MEDS: THERAGRAN 1 TABLET PO (07:54)
[2025-05-16] MEDS: URSO 500 MG PO (07:54)
[2025-05-16] MEDS: PROTONIX 40 MG PO (07:54)
[2025-05-16] MEDS: KLONOPIN 0.5 MG PO ×2 (07:54→15:58)
[2025-05-16] MEDS: VITAMIN D3 (cholecalciferol) 50 MCG PO (07:57)
[2025-05-16] MEDS: EFFEXOR XR 37.5 MG PO (07:57)
[2025-05-16] MEDS: VITAMIN B-12 2000 MCG PO (07:57)
[2025-05-16 08:19] LABS: Blood Urea Nitrogen 17 mg/dl (7-17); Calcium 7.4 mg/dl (8.4-10.2); Chloride 100 mmol/L (98-107); Estimated Creatinine Clearance 66 ml/min; Glucose 69 mg/dl (70-99); Potassium 4.1 mmol/L (3.5-5.1); Sodium 135 mmol/L (135-145); eGFR > 60.00
[2025-05-16 08:28] LABS: Carbon Dioxide 35 mmol/L (22-30)
--- NOTE | 2025-05-16 12:51 | W.PN.CARDCBS ---
Today's Communication / Plan
-
Given hypotension will hold off on Lasix for now
Continue midodrine
Case management to assess cost of Farxiga versus Jardiance
Impression / Plan
-
Primary Head Of Marketing Analytics: Dr. Angélica Mcmillan
Assessment:
Presentation with APARICIO, LE edema
Acute on chronic HFpEF
Left anterior fascicular block
History of AVNRT with distant ablation
Moderate coronary calcifications previously seen on CT scan
Hyperlipidemia, history of statin intolerance
History of pulmonary nodule
Chronic anemia
History of thrombocytosis
History of complicated exploratory laparotomy, lysis of adhesions, ileocecectomy, repair gastrotomy with bilateral transversus abdominis myofascial releases and open repair of incisional hernia with mesh 2020
History of cirrhosis/alcoholism
History of gastric bypass surgery
ECHO 03/04/23: EF 61%, mild MR, mild MAC, mild AR, mild TR, PAP 27 mmHg
Plan:
Volume status is difficult to ascertain
However blood pressure is 82 systolic and is currently off of oxygen
May be overdiuresed and will hold off on Lasix for now
Check echocardiogram
Case management to check on cost of Farxiga versus Jardiance
Progress Note - Head Of Marketing Analytics
Subjective
Date of Service: May 16, 2025
Complains of shortness of breath with standing.
Objective
Labs:
05/16/25 06:48
05/16/25 06:48
Labs
Hgb 9.8 g/dL (12.0-16.0) L 05/16/25 06:48
Hct 28.3 % (37.0-47.0) L 05/16/25 06:48
Plt Count 378 10^3/uL (130-400) 05/16/25 06:48
Sodium 135 mmol/L (135-145) 05/16/25 06:48
Potassium 4.1 mmol/L (3.5-5.1) 05/16/25 06:48
BUN 17 mg/dl (7-17) 05/16/25 06:48
Creatinine 0.6 mg/dL (0.6-1.0) 05/16/25 06:48
Glucose 69 mg/dl (70-99) L 05/16/25 06:48
Vital Signs and I&O:
Vital Signs
Temp Pulse Resp BP Pulse Ox
97.4 F 95 20 /63 96
05/16/25 11:50 05/16/25 11:50 05/16/25 11:50 05/16/25 11:50 05/16/25 11:50
Vital Signs
Temp Pulse Resp BP Pulse Ox
97.4 F 95 20 96
05/16/25 11:50 05/16/25 11:50 05/16/25 11:50 05/16/25 11:50 05/16/25 11:50
Intake & Output
05/14/25 05/15/25 05/16/25 05/17/25
06:59 06:59 06:59 06:59
Intake Total 240 / 240 860 / 860 1500 / 1500
Output Total 800 / 800 375 / 375
Balance -560 / -560 485 / 485 1500 / 1500
Physical Exam
Physical Exam
General: Well developed, well nourished in NAD.
Neck: Supple, no JVD, HJR, carotids +2 B/L, no bruits bilaterally.
Heart: Non displaced PMI, RRR, no murmurs, No S3, S4, no rubs.
Lungs: Scattered rhonchi
Extremities: No clubbing, cyanosis or edema bilaterally.
Neuro: Grossly nonfocal, awake, alert and oriented x3.
--- NOTE | 2025-05-16 13:40 | CM ---
CM following re: discharge planning.
Reviewed pt's chart, met with pt.
According to pt is medically stable to be discharged today. Pt is aware, expressed her agreement and she stated her will transport home. IMM reviewed, placed on chart, pt has a copy.
Updated PT and OT evaluations noted - home PT/OT recommended. Pt is aware, expressed her agreement and she preferred [facility]. A referral to [facility] made. Also, pt stated she will talk to her regarding VN services. CM encouraged the pt to accept VN
services
Please fax discharge instructions to [facility] at [phone]
D/C plan: home with [facility] and family support. to transport.
--- NOTE | 2025-05-16 14:16 | VNURNOTE ---
Home Health Liaison met with patient at bedside to discuss [facility] nurse/therapy, visits, schedule and homebound status. Explained to patient that visits at home are 2-3 x per week to assess and teach medical management. Patient is familiar with
services. Informed her that [facility] will contact them for start of care within a few days after discharge from . Provided contact number for [facility]. Patient on the fence about accepting VN. She wants to speak with her spouse. Explained to pt
that if she declines VN and then changes her mind after DC, would have to go through PCP to order Vn and there could be a few week delay.
[facility] referral completed in [facility], noted that pt wants to discuss w/spouse.
--- NOTE | 2025-05-16 14:36 | W.PN.HOSP.TC ---
Addendum entered and electronically signed by Ramakrishna Whipple MD 05/16/25 23:35:
Attending Addendum:
I saw and evaluated the patient. I reviewed the resident�s note and agree with findings and plan as documented in the resident�s note. Sub: feels much improved. Not dizzy on standing. Wants to go home. refusing SNF. Full 12 point ROS reviewed and
negative except as documented Exam: Vitals reviewed in chart GEN-NAD heart RRR lungs clear abd soft LE no edema
Plan:
#Acute HFpEF:
-resolved
-proBNP 1330
-echo-05/16- unchanged-Ejection fraction is 64%
-s/p Lasix 20mg IV x 2 now hypotensive
-hold lasix today
-not orthostatic
-increase Midodrine to 10mg PO TID hold home metoprolol
-cards following appreciate input ok to DC home with follow up restart lasix in am
Other problems:
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
PBC: cont Ursodiol
Alcohol abuse disorder
Hypothyroidism: cont Levoxyl, TSH normal
Anxiety/Depression: cont Venlafaxine atc Klonopin advised to taper off as OP
GERD: cont PPI
HLD: cont Zetia
Hyponatremia, resolved
FULL/Lovenox
Dispo DC home with HC today d/w CM
Time spent coordinating care, DC planning, review of DC plan of care with resident, transition of care, review of records, med rec/scripts sent electronically, consults, notes, d/w consultants, nursing, cards and CM� 32 mins >50% of this time was
devoted to counseling and coordination of care
Original Note:
Today's Communication/Plan
-
Ready for discharge home today with home PT
Continue daily Lasix 20 mg p.o.
Holding home metoprolol tartrate 25mg
Continue midodrine 10mg TID
Follow-up appointment scheduled with outpatient banking analyst for 06/08/2025
Assessment / Plan
Assessment / Plan
#Acute exacerbation HFpEF:
- Echo completed today ejection fraction is 64% by volumetric assessment.
- proBNP 1330 at admission
- Patient is received 2 doses of Lasix 20 mg IV since admission, has been limited because of hypotension
- saturating well on RA, currently not tachypneic
- orthostatic VS negative 05/16 BP 98/67 seated at 98/66 standing
- Midodrine increased to 10mg PO BID to tx hypotension
- cards following and agree okay for discharge with daily Lasix 20 mg and will help coordinate scheduling outpatient visit with banking analyst
#PAF
- h/o ablation, not on AC (fall risk)
- holding home beta-lion with hypotension
#PBC
- continue Ursodiol
#Hypothyroidism:
- Continue Levoxyl
- TSH normal
#Anxiety/Depression:
- Continue venlafaxine/Klonopin
#GERD:
- Continue PPI
#HLD:
- Continue Zetia
Anticipated Discharge: Today
Subjective/Interval History
-
Date of Service: May 16, 2025
Patient seen this morning seated at the bedside. Patient is overall doing well. Patient notes improvement in her shortness of breath, dizziness, although she still notes some mild shortness of breath on exertion. Patient denies headache, changes
in vision, chest pain, shortness of breath at rest, nausea, vomiting, cristiane pain, changes in bowel movements. Patient notes improvement in her lower extremity edema.
Objective Data
-
Labs:
Laboratory Results
05/16/25
06:48
WBC 4.9
Hgb 9.8 L
Hct 28.3 L
Plt Count 378
Sodium 135
Potassium 4.1
Chloride 100
Carbon Dioxide 35 H
BUN 17
Creatinine 0.6
Glucose 69 L
Calcium 7.4 L
Vital Signs:
Vital Signs
Temp Pulse Resp BP Pulse Ox
97.4 F 95 20 90/63 96
05/16/25 11:50 05/16/25 11:50 05/16/25 11:50 05/16/25 11:50 05/16/25 11:50
I&O
05/15/25 05/16/25 05/17/25
06:59 06:59 06:59
Intake Total 860 / 860 1500 / 1500
Output Total 375 / 375
Balance 485 / 485 1500 / 1500
Review of Systems
-
History Source: Patient
Constitutional: Reports No Symptoms
EENT: Reports No Symptoms Reported
Respiratory: Reports Other (mild SOB on exertion)
Cardiac: Reports No Symptoms
Abdomen/GI: Reports No Symptoms
Genitourinary: Reports No Symptoms
Musculoskeletal: Reports Joint Pain
Skin: Reports No Symptoms
Neuro: Reports No Symptoms
Physical Exam
-
General: No Apparent Distress and Appears Chronically Ill
HEENT: Normocephalic and Atraumatic
Respiratory: Clear to Auscultation
Cardiac: Regular Rhythm
GI: Soft, Nontender, Nondistended and Normal Bowel Sounds
Musculoskeletal: Other (Mild edema noted B/L lower extremities)
Skin: Warm and Dry
Neuro: AO x 3
Psych: Calm and Intact Judgement/Insight
--- NOTE | 2025-05-16 14:44 | PTCARENOTE ---
Patient ambulating in room with walker and supervision. Patient sitting in chair with no c/o pain at present. Patient has limited ROM of right shoulder and chronic pain.Schedule [place] given with good relief this am. Patient with skin tear on chest
from Red dot removal. Area cleaned with NSS, adaptic & silicone border foam applied. Patient eager to go home, patient refusing to be discharged to [facility]. Patient made physician aware.
--- NOTE | 2025-05-16 17:48 | W.DCSUMMARY ---
Addendum entered and electronically signed by Ramakrishna Whipple MD 05/16/25 23:35:
Read, reviewed, and agree. See same day progress note for additional details.
Jacky Whipple MD
Original Note:
Documented by User: Susy Bojorquez DO, Resident 05/16/25 19:19
Discharge Summary
Discharge Data
Date of Admission: 05/13/25
Date of Discharge: 05/16/25
-
Pending Results: No
Hospital Course
Primary diagnosis: Acute HFpEF exacerbation, hypotension
Secondary diagnoses: Atrial fibrillation s/p ablation, anxiety, depression, hypothyroidism, chronic anemia
Hospital course:
Patient is a 64-year-old female with past medical history of atrial fibrillation s/p ablation, anxiety, depression, thrombocytopenia, hypothyroidism, chronic anemia who presented to the ED on 05/13/2025 with shortness of breath, lightheaded and
dizziness. Patient has had multiple falls in the last month. Patient notes that the dyspnea has worsened in the last week and has also noted some lower extremity swelling bilaterally. Patient had taken 1 dose of her prn Lasix 20 mg for swelling a
week ago. Imaging in the ED: chest x-ray which showed a small right pleural effusion. Chest CT in the ED revealed no evidence of pulmonary embolism or thoracic aortic dissection, small bilateral pleural effusions, right greater than left, minimal
hazy opacity in the right lateral base which could represent pneumonia or subsegmental atelectasis. CT of the head which showed no acute intracranial abnormality. Labs in the ED: WBC 4.9, hemoglobin stable anemic 9.2, platelets 380, sodium 133
mmol/L, calcium 7.8 mg/dL alk phos 214 U/L, TSH 3.81, cardiac BNP of 1300. Vital signs unremarkable. Patient was admitted for suspected acute CHF exacerbation. 20 IV Lasix given in the ED. Cardiology was consulted at this time and echo was
ordered. Cardiology agreed with plan for diuresis with IV Lasix. Creatinine was stable. Patient was being followed on telemetry. EKG was reviewed showing sinus rhythm with LAFB. Due to continued hypotension, lasix were held and patient was
started on midodrine 5 mg p.o. 3 times daily to treat hypotension in the hopes that beta-lion could be restarted and further Lasix could be given. Midodrine dose increased to 10 mg p.o. 3 times daily. Patient's symptoms have returned to
baseline or completely resolved. Patient is feeling well enough to go home. Patient is being discharged home today. Physical therapy cleared her for home with home PT. Cardiology agrees that patient can go home continuing on daily midodrine 10 mg
3 times daily as well as Lasix 20 mg p.o. daily, with follow-up with Dr. Mcmillan scheduled for 06/08/2025.
Imaging:
05/13/25 Chest XRay
IMPRESSION:
Small right pleural effusion.
No acute osseous injury noted. If concerned of sternal fracture, chest CT examination recommended.
05/13/25 CT Head
IMPRESSION:
No acute intracranial abnormality.
05/13/25 CT Chest
IMPRESSION:
1. No evidence of pulmonary embolism or thoracic aortic dissection.
2. Small bilateral pleural effusions, right greater than left.
3. Minimal hazy opacity at the right lung base, which may represent pneumonia or subsegmental atelectasis.
4. Mild diffuse soft tissue anasarca.
5. Mild coronary arterial calcification. Please correlate with symptoms of and risk factors for coronary artery disease, with further workup as clinically appropriate.
Discharge Plan
-
Patient Disposition: Home (Routine Discharge)
Discharge Diagnosis/Procedures: acute on chronic CHFpEF exacerbation, hypotension, anxiety, depression, hypothyroidism, GERD
Condition: Fair
Diet: 2 Gram Sodium and Restrict fluids to 64 oz
Activity: As tolerated
Driving Restrictions: As prior to admission
Bathing Restrictions: None
Other Services: PT
Specialty Instructions: Weigh Daily- Call MD for wt gain/loss 3 lbs overnight/5 lbs in 1 week
Activity Restrictions/Additional Instructions:
Please get repeat BMP in one week and follow up with cardiology.
Referrals:
Angélica Mcmillan MD [Active, Cardiology] - 06/08/25 10:20 am
Referral Note: You have an appointment to see Dr. Mcmillan's physician medical staff assistant, Ashanti, at the [place] office on 06/08/2025 at 10:20 AM. You are then scheduled to see Dr. Angélica Mcmillan at the [place] office on 09/14/2024 at 11:20 AM.
Please call [phone] if you need to reschedule.
Mohsen Mercado MD [Family Provider, [facility]]
Prescriptions:
New
midodrine 5 mg Tablet
10 mg PO TID@0800,1300,1800 30 Days Qty: 180 0RF
furosemide [Lasix] 20 mg tablet
20 mg PO DAILY Qty: 30 0RF
(DME) Bmp
See Rx Instructions .ROUTE .MEDSUPPLY Qty: 1 0RF
Rx Instructions:
Dx: CHF
Please send results to crm consultant Dr. Mcmillan [facility]ology
Continued
ursodiol 500 MG tablet
500 mg PO BID
omeprazole 40 MG capsule,delayed release(DR/EC)
40 mg PO DAILY
vitamin E (dl, acetate) 400 UNITS capsule
400 units PO DAILY
cholecalciferol (vitamin D3) [Vitamin D3] 50 mcg (2,000 unit) Capsule
50 mcg PO DAILY Qty: 0
cyanocobalamin (vitamin B-12) 1,000 MCG tablet
2,000 mcg PO DAILY
levothyroxine 50 MCG tablet
50 mcg PO DAILY AT 0700
multivitamin Tablet
1 tab PO DAILY
ezetimibe [Zetia] 10 mg Tablet
10 mg PO DAILY
venlafaxine [Effexor XR] 37.5 mg Capsule,Extended Release 24hr
37.5 mg PO DAILY
hydrocodone-acetaminophen 5-325 mg Tablet
1 tab PO TID
venlafaxine [Effexor XR] 150 mg Capsule,Extended Release 24hr
150 mg PO DAILY
clonazepam [Klonopin] 0.5 mg Tablet
0.5 mg PO TID
Held
metoprolol tartrate 12.5 MG tablet
25 mg PO DAILY
Hold Instructions: Hold until you see your crm consultant at follow up appointment
Discharge Orders:
Discharge Patient (As Directed); Ordered 05/16/25
Ordered By: Susy Bojorquez
Discharge Date and Time
Discharge Date/Time: 05/16/25 18:36
Print Language: GUATEMALAN

Documented by User: Ramakrishna Whipple MD 05/16/25 23:29
Discharge Summary
Discharge Data
Date of Admission: 05/13/25
Date of Discharge: 05/16/25
Discharge Plan
-
Patient Disposition: Home (Routine Discharge)
Discharge Diagnosis/Procedures: acute on chronic CHFpEF exacerbation, hypotension, anxiety, depression, hypothyroidism, GERD
Condition: Fair
Diet: 2 Gram Sodium and Restrict fluids to 64 oz
Activity: As tolerated
Driving Restrictions: As prior to admission
Bathing Restrictions: None
Other Services: PT
Specialty Instructions: Weigh Daily- Call MD for wt gain/loss 3 lbs overnight/5 lbs in 1 week
Activity Restrictions/Additional Instructions:
Please get repeat BMP in one week and follow up with cardiology.
Referrals:
Angélica Mcmillan MD [Active, Cardiology] - 06/08/25 10:20 am
Referral Note: You have an appointment to see Dr. Mcmillan's physician medical staff assistant, Ashanti, at the [facility] on 06/08/2025 at 10:20 AM. You are then scheduled to see Dr. Angélica Mcmillan at the [place] office on 09/14/2024 at 11:20 AM.
Please call [phone] if you need to reschedule.
Mohsen Mercado MD [Family Provider, [facility]]
Prescriptions:
New
midodrine 5 mg Tablet
10 mg PO TID@0800,1300,1800 30 Days Qty: 180 0RF
furosemide [Lasix] 20 mg tablet
20 mg PO DAILY Qty: 30 0RF
(DME) Bmp
See Rx Instructions .ROUTE .MEDSUPPLY Qty: 1 0RF
Rx Instructions:
Dx: CHF
Please send results to crm consultant Dr. Mcmillan [facility]
Continued
ursodiol 500 MG tablet
500 mg PO BID
omeprazole 40 MG capsule,delayed release(DR/EC)
40 mg PO DAILY
vitamin E (dl, acetate) 400 UNITS capsule
400 units PO DAILY
cholecalciferol (vitamin D3) [Vitamin D3] 50 mcg (2,000 unit) Capsule
50 mcg PO DAILY Qty: 0
cyanocobalamin (vitamin B-12) 1,000 MCG tablet
2,000 mcg PO DAILY
levothyroxine 50 MCG tablet
50 mcg PO DAILY AT 0700
multivitamin Tablet
1 tab PO DAILY
ezetimibe [Zetia] 10 mg Tablet
10 mg PO DAILY
venlafaxine [Effexor XR] 37.5 mg Capsule,Extended Release 24hr
37.5 mg PO DAILY
hydrocodone-acetaminophen 5-325 mg Tablet
1 tab PO TID
venlafaxine [Effexor XR] 150 mg Capsule,Extended Release 24hr
150 mg PO DAILY
clonazepam [Klonopin] 0.5 mg Tablet
0.5 mg PO TID
Held
metoprolol tartrate 12.5 MG tablet
25 mg PO DAILY
Hold Instructions: Hold until you see your crm consultant at follow up appointment
Discharge Orders:
Discharge Patient (As Directed); Ordered 05/16/25
Ordered By: Susy Bojorquez
Discharge Date and Time
Discharge Date/Time: 05/16/25 18:36
Print Language: GUATEMALAN
== END 2025-05-16 18:36 | disposition home health service (06) | DRG 292 ==
LOC: 2 NORTH 15:10
PROVIDERS: Internal Medicine; Physician Assistant; Student in an Organized Health Care Education/Training Program; ADMITTING PHYSICIAN Hospitalist; ATTENDING PHYSICIAN Family Medicine; EMERGENCY PHYSICIAN Emergency Medicine; FAMILY PHYSICIAN Family Medicine; OTHER PHYSICIAN Internal Medicine Cardiovascular Disease
DX: I50.33 Acute on chronic diastolic (congestive) heart failure (principal); E46 Unspecified protein-calorie malnutrition; E87.1 Hypo-osmolality and hyponatremia; E03.9 Hypothyroidism, unspecified; F41.9 Anxiety disorder, unspecified; F32.A Depression, unspecified; K21.9 Gastro-esophageal reflux disease without esophagitis; E78.5 Hyperlipidemia, unspecified; I48.0 Paroxysmal atrial fibrillation; I95.9 Hypotension, unspecified; Z79.899 Other long term (current) drug therapy; Z87.891 Personal history of nicotine dependence; Z68.20 Body mass index [BMI] 20.0-20.9, adult
CPT/HCPCS: 70450; 71046; 71275; 80048; 80053; 82607; 82746; 83690; 83735; 83880; 84443; 84484; 85025; 85027; 85379; 87070; 93005; 93306; 96374; 97116; 97163; 97166; 99285; Q9967

== ENCOUNTER 2025-06-07 09:03 | Inpatient (IN) | payer OTHER, SELFPAY ==
[2025-06-06] VITALS (7 sets, daily range): BP systolic 74–103; BP diastolic 57–69
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
[2025-06-06 22:45] LABS: Hematocrit 23.0 % (37.0-47.0); Hemoglobin 8.1 g/dL (12.0-16.0); Mean Corp Hgb Conc. 35.2 g/dL (33.0-37.0); Mean Corpuscular Volume 97.5 fL (81.0-99.0); Nucleated Red Blood Cells % 0 %; Platelet Count 279 10^3/uL (130-400); Red Cell Dist. Width 14.6 % (11.5-14.5)
[2025-06-06] MEDS: NSS 1000 IV (22:50)
[2025-06-06 23:10] LABS: Blood Urea Nitrogen 17 mg/dl (7-17); Calcium 7.8 mg/dl (8.4-10.2); Carbon Dioxide 33 mmol/L (22-30); Chloride 100 mmol/L (98-107); Glucose 146 mg/dl (70-99); Sodium 132 mmol/L (135-145); eGFR > 60.00
[2025-06-07] VITALS (26 sets, daily range): BP systolic 64–107; BP diastolic 43–73; BMI 18.9; BMI 19.5
[2025-06-07 01:41] LABS: Urine Character Clear (Clear)
[2025-06-07 01:51] LABS: Urine Red Blood Cell 0-2 /HPF (0-2); Urine Urothelial Cell 16-20 /LPF (FEW)
--- NOTE | 2025-06-07 02:42 | HPS.HSE ---
Family Physician
-
Family Physician: Mohsen Mercado
Chief Complaint
-
fall
History of Present Illness
65 female history of Jioxd-Fljzetwvd-Bvsta s/p ablation, atrial fibrillation, anxiety depression, history of alcohol abuse, thrombocytopenia, anorexia, edema, lower GI bleed, amatory dysfunction, arthritis, hypothyroidism who presented with a fall
that was unwitnessed at home. Fell from landing down 6 steps with head strike against the ground that occurred after using marijuana. Sustained a laceration to her posterior scalp and complains of neck pain. CT cervical spine without acute
findings. CT head without acute findings. CT lumbar spine report pending.
Medical History
Past Medical History
Past Medical History: Reports HTN, Hypercholesterolemia and Hypothyroidism
Past Surgical History: Reports Orthopedic
Social History
Alcohol: None
Family History
Family History: Not pertinent
Allergies / Home Medications
Allergies reflects when Allergies were last updated in [facility].
Home Medications with original date entered in [facility]
Allergy/Medication List:
Allergies
Allergy/AdvReac Type Severity Reaction Status Date / Time
mollusks Allergy Vomiting Verified 05/13/25 08:14
Penicillins Allergy Hives Verified 05/13/25 08:14
shellfish derived Allergy CLAMS-VOMIT Verified 05/13/25 08:14
ING
Nclybmq-EWX-CvZ Reductase Allergy MUSCLE Verified 05/13/25 08:14
Inhibitor (Jqqskra-Jce-Nil CRAMPS
Reductase Inhibitor)
Home Medications
ursodiol 500 mg tablet 500 mg PO BID Urinary issue 08/02/20
omeprazole 40 mg capsule,delayed release 40 mg PO DAILY Gastrointestinal issue 11/23/20
vitamin E (dl, acetate) 180 mg (400 unit) capsule 400 units PO DAILY Supplement 11/23/20
cholecalciferol (vitamin D3) 50 mcg (2,000 unit) capsule (Vitamin D3) 50 mcg PO DAILY Supplement ##0 12/29/20
cyanocobalamin (vitamin B-12) 1,000 mcg tablet 2,000 mcg PO DAILY Supplement 01/05/21
levothyroxine 50 mcg tablet 50 mcg PO DAILY AT 0700 Thyroid 01/05/21
multivitamin 1 tab PO DAILY Supplement 11/26/22
ezetimibe 10 mg tablet (Zetia) 10 mg PO DAILY High Cholesterol 08/08/23
hydrocodone 5 mg-acetaminophen 325 mg tablet 1 tab PO TID Pain 05/13/25
venlafaxine 150 mg capsule,extended release 24 hr (Effexor XR) 150 mg PO DAILY Mental Health/Anxiety 05/13/25
clonazepam 0.5 mg tablet (Klonopin) 0.5 mg PO TID 05/14/25
Bmp #1 ea 05/16/25
furosemide 20 mg tablet (Lasix) 20 mg PO DAILY CHF exacerbation #30 tabs 05/16/25
midodrine 5 mg tablet 10 mg (2 x 5 mg) PO TID@0800,1300,1800 hypotension 30 days #180 tabs 05/16/25
Review of Systems
-
A 12 point ROS was completed and negative except as noted: Yes
Physical Exam
Vital Signs
Vital Signs
Temp Pulse Resp BP Pulse Ox
98.4 F 96 19 85/69 99
06/06/25 19:18 06/06/25 23:45 06/06/25 23:45 06/06/25 23:00 06/06/25 23:45
Physical Exam
General: No Apparent Distress and Comfortable
HEENT: NormoCephalic, Anicteric and Moist mucous membranes
Respiratory: Clear
Cardiac: S1/S2 and Regular Rhythm
GI: Soft, Non Tender, Non Distended and Normal Bowel Sounds
Musculoskeletal: No Clubbing and No Cyanosis
Skin: Warm and Dry
Neuro: Awake and AO x 3
Psych: Calm
Laboratory Results
-
06/06/25 22:37
06/06/25 22:37
Laboratory Results
Total Bilirubin Cancelled 06/06/25 22:37
AST Cancelled 06/06/25 22:37
ALT Cancelled 06/06/25 22:37
Alkaline Phosphatase Cancelled 06/06/25 22:37
Impression/Plan
-
Fall
Likely related to marijuana use
CT head and cervical spine without acute fracture. Lumbar spine pending.
PT/OT
Orthostatics
PBC
Continue ursodiol
Hypothyroidism
Continue levothyroxine
Chronic hypotension
IVF
Midodrine
GERD
Conitnue ppi
Anxiety/depression
Continue anxiolytics/antidepressants
Chronic pain
Conitnue hydrocodone/acetaminophen once bp improves
HLD
Continue zetia
HFpEF, compensated
Hold lasix due to hypotension
[2025-06-07] MEDS: NSS 500 IV ×2 (04:21→08:09)
[2025-06-07 07:44] LABS: Blood Urea Nitrogen 18 mg/dl (7-17); Calcium 7.4 mg/dl (8.4-10.2); Carbon Dioxide 32 mmol/L (22-30); Chloride 104 mmol/L (98-107); Estimated Creatinine Clearance 54 ml/min; Glucose 91 mg/dl (70-99); Sodium 135 mmol/L (135-145); eGFR > 60.00
[2025-06-07 07:49] LABS: Potassium 3.2 mmol/L (3.5-5.1)
[2025-06-07] MEDS: NSS 1000 IV (07:50)
[2025-06-07] MEDS: THIAMINE INJECTION 200 MG IV (07:54)
[2025-06-07] MEDS: SYNTHROID 50 MCG PO (07:55)
[2025-06-07] MEDS: PROTONIX 40 MG PO (07:55)
[2025-06-07] MEDS: VITAMIN D3 (cholecalciferol) 50 MCG PO (08:00)
[2025-06-07] MEDS: EFFEXOR XR 150 MG PO (08:03)
[2025-06-07] MEDS: URSO 500 MG PO ×2 (08:04→21:11)
[2025-06-07] MEDS: ZETIA 10 MG PO (08:06)
[2025-06-07] MEDS: FOLVITE PO ×2 (08:09→08:16)
[2025-06-07] MEDS: FOLVITE 50.2 MG IV (08:12)
[2025-06-07 08:18] LABS: Hematocrit 16.8 % (37.0-47.0); Hemoglobin 6.2 g/dL (12.0-16.0); Mean Corp Hgb Conc. 36.9 g/dL (33.0-37.0); Mean Corpuscular Volume 94.4 fL (81.0-99.0); Platelet Count 241 10^3/uL (130-400); Red Cell Dist. Width 14.2 % (11.5-14.5)
--- NOTE | 2025-06-07 09:08 | W.PN.UPDATE ---
Update Note
Progress Note Update
Patient seen and examined after postmidnight mission. Patient complains of neck pain and is tearful. Vital signs reviewed, patient is chronically hypotensive. No acute distress, awake and alert. Tachycardic, regular rhythm, normal S1-S2. Clear
to auscultation bilaterally. Cranial nerves II to XII are intact. Hemoglobin 6.2. While this is likely dilutional she needs a repeat CT scan of the brain to rule out intracranial hemorrhage. CT C-spine reviewed, no fx (with respect to neck pain).
Transfuse 2U pRBCs. Further management as outlined in the H&P done after midnight.
--- NOTE | 2025-06-07 09:26 | EDCM ---
Reviewed chart and met with pt bedside in ED. Lives with her in split level home, [address].
Independent in ADLS, personal care and ambulation at baseline, uses rollator, also has SPC.
ROWAN reviewed and signed, pt declined copy.
Confirms prescription coverage.
Current with [facility], no hx SNF
PCP: Mohsen Mercado
Pharmacy: [facility] [address]
Anticipate discharge home with VN MARGY, CM will continue to follow for all discharge planning needs.
[2025-06-07 09:29] LABS: Reticulocyte Count 1.2 % (0.4-2.8)
--- NOTE | 2025-06-07 09:39 | VNURNOTE ---
Chart reviewed. Patient is current with [facility]. Will continue to follow hospital course and DC plans.
[2025-06-07 11:54] LABS: Ferritin 41.0 ng/ml (11.1-264.0)
[2025-06-07 12:10] LABS: Iron 24 ug/dl (37-170); LDH 187 U/L (120-246); Total Iron Binding Capacity 137 ug/dl (265-497)
[2025-06-07 12:25] LABS: Folate 3.4 ng/ml (2.76-20); Vitamin B12 > 1000 pg/ml (239-931)
[2025-06-07] MEDS: ROXICODONE 5 MG PO ×3 (12:31→21:42)
[2025-06-07] MEDS: NSS IV (13:25)
[2025-06-08] MEDS: SYNTHROID 50 MCG PO (06:07)
[2025-06-08] MEDS: ROXICODONE 5 MG PO (06:11)
[2025-06-08 07:00] VITALS: BP 88/58
[2025-06-08 07:17] LABS: Hematocrit 26.1 % (37.0-47.0); Hemoglobin 9.4 g/dL (12.0-16.0); Mean Corp Hgb Conc. 36.0 g/dL (33.0-37.0); Mean Corpuscular Volume 85.9 fL (81.0-99.0); Platelet Count 218 10^3/uL (130-400); Red Cell Dist. Width 17.1 % (11.5-14.5)
--- NOTE | 2025-06-08 07:54 | W.PN.HOSP.TC ---
Today's Communication/Plan
-
see plan
Assessment / Plan
Assessment / Plan
Gen: NAD, AAOx3, appears chronically ill and malnourised.
Eyes: EOMI, PERRLA, no scleral icterus.
Neck: supple.
CV: RRR, +S1/S2, no m/r/g.
Resp: CTAB, no rales, wheezes, or rhonchi.
Abd: +BS, soft, NT, ND
Skin: No rashes. ecchymoses and soft tissue edema in the L upper buttock.
Neuro: CN 2-12 intact, non-focal.
Psych: Normal mood and affect.
CT brain: There are changes of mild cortical atrophy and chronic ischemic disease with no acute findings.
CT L-spine:
1. LARGE 15 cm ACUTE SOFT TISSUE HEMATOMA in the midline subcutaneous fat of the lower back overlying the L2-L5 lumbar spinous processes.
2. Severe multilevel lumbar discogenic degenerative disease.
3. Chronic superior endplate fracture of T11 with moderate loss of vertebral body height and vertebral body sclerosis.
4. Chronic superior endplate fractures of T12 and L1 with mild loss of height.
5. Mild to moderate central canal stenosis at L1/L2 and L3/L4.
6. Severe bilateral neural foraminal narrowing at L3/L4.
7. Transitional lumbosacral vertebral segment (partial sacralization of L5).
CT C-spine: No evidence of acute fracture or dislocation.
Fall:
-likely due to acute toxic encephalopathy (transient, present at the time of the fall, now resolved) related to marijuana use
-imaging above
-PT/OT
-pain control for neck pain
Acute blood loss anemia:
-due to traumatic hematoma
-s/p 2U pRBCs
-case discussed over [facility] with neurosurgery, no surgical intervention indicated
Other problems:
PBC: cont ursodiol
Hypothyroidism: Cont Levoxyl
Chronic hypotension: cont Midodrine
GERD: Cont PPI
Anxiety/depression: cont Klonopin/Effexor
Chronic pain syndrome, chronic opioid use with dependence: oxycodone PRN
HLD: cont Zetia
Chronic HFpEF: holding lasix with hypotension
Palliative care to see the pt today.
Goal for d/c 06/09/25
FULL/SCDs
Anticipated Discharge: Within 24 hours
Subjective/Interval History
-
Date of Service: June 08, 2025
c/o L neck pain. Denies bowel/bladder incompetence.
Objective Data
-
Labs:
Laboratory Results
06/08/25
06:25
WBC 7.7
Hgb 9.4 L D
Hct 26.1 L
Plt Count 218
Vital Signs:
Vital Signs
Temp Pulse Resp BP Pulse Ox
98.6 F 96 18 90/60 98
06/07/25 23:22 06/07/25 23:22 06/07/25 23:22 06/07/25 23:22 06/07/25 23:22
I&O
06/07/25 06/08/25 06/09/25
06:59 06:59 06:59
Intake Total 740 / 740
Balance 740 / 740
[2025-06-08] MEDS: ZETIA 10 MG PO (08:38)
[2025-06-08] MEDS: URSO 500 MG PO ×2 (08:39→21:12)
[2025-06-08] MEDS: FOLVITE 1 MG PO (08:39)
[2025-06-08] MEDS: PROTONIX 40 MG PO (08:40)
[2025-06-08] MEDS: EFFEXOR XR 150 MG PO (08:40)
[2025-06-08] MEDS: VITAMIN D3 (cholecalciferol) 50 MCG PO (08:40)
[2025-06-08] MEDS: THIAMINE INJECTION 200 MG IV (08:41)
[2025-06-08] MEDS: ROXICODONE 10 MG PO ×3 (09:12→21:15)
[2025-06-08 09:47] VITALS: BMI 19.5
--- NOTE | 2025-06-08 10:59 | W.CON.PAL ---
Consultation
-
Date/Time Consultation Requested: 06/07
Date/Time Consultation Performed: 06/08
Requesting Provider: Terry Lepe
Performing Provider: Bree Wharton
Reason for Consult: Goals of Care Discussion
Reason for Admission
Illness Course/HPI
65 year old F with history of HFpEF, chronic back pain from DDD on chronic opioids, Eqwkr-Tpmwqtyqx-Eiqtb s/p ablation, atrial fibrillation, anxiety, depression, alcohol abuse, thrombocytopenia, anorexia, h hypothyroidism admitted s/p fall down the
steps. Trauma workup mostly negative, no acute fractures but with large hematoma at L2-5, hgb 6.2 on admission s/p 2 units PRBCs. Recent admission end of Nov with CHF exacerbation and newly started on diuretics.
Good response to PRBCs. Working with PT/OT and known to home care. Plan for possible discharge tomorrow. Consult for GOC.
Seen at bedside with spouse present. Overall feeling okay, pain is well controlled but having a hard time moving her neck. We discussed palliative care and offered to see her at home given her anorexia, new chf. Both patient and spouse state they
want to see how things go and see if she needs SNF. Feel like they already have enough people coming in at home with VN and therapy. Explained differences and let them know to reach out in the future if interested. Otherwise goals are treatment
oriented and rehabilitative.
Objective Data
-
Objective Data:
Vital Signs
Temp Pulse Resp BP Pulse Ox
98.7 F 89 16 88/58 98
06/08/25 07:00 06/08/25 07:00 06/08/25 07:00 06/08/25 07:00 06/08/25 07:00
Laboratory Results
06/08/25 06:25
06/07/25 07:13
Total Protein Cancelled 06/06/25 22:37
Albumin Cancelled 06/06/25 22:37
Urine Color Yellow 06/07/25 01:36
Urine Clarity Clear (Clear) 06/07/25 01:36
Urine pH 5.0 (5.0-9.0) 06/07/25 01:36
Ur Specific Lindsay 1.020 (<1.030) 06/07/25 01:36
Urine Ketones Negative (Negative) 06/07/25 01:36
Urine Bilirubin Negative (Negative) 06/07/25 01:36
Palliative Performance Scale
Palliative Performance Scale:
PPS Level Ambulation Activity & Evidence of Disease Self Care Intake Conscious Level
100% Full Normal Activity & Work; Full Intake Full
No Evidence of Disease
90% Full Normal Activity & Work; Full Normal Full
Some Evidence of Disease
80% Full Normal Activity with Effort Full Normal or Full
Some Evidence of Disease Reduced
70% Reduced Unable Normal Job/Work Full Normal or Full
Significant Disease Reduced
60% Reduced Unable Hobby/Housework Occasional Normal or Full or Confusion
Significant Disease Assistance Reduced
50% Mainly Sit/Lie Unable to do Any Work Considerable Normal or Full or Confusion
Extensive Disease Assistance Req'd Reduced
40% Mainly in Bed Unable to do Most Activity Mainly Assistance Normal or Full or Drowsy;
Extensive Disease Reduced +/- Confusion
30% Totally Bed Unable to do Any Activity Total Care Normal or Full or Drowsy;
Bound Extensive Disease Reduced +/- Confusion
20% Totally Bed Bound Unable to do Any Activity Total Care Minimal to Full or Drowsy;
Extensive Disease Sips +/- Confusion
10% Totally Bed Bound Unable to do Any Activity Total Care Mouth Care Drowsy or Coma;
Extensive Disease Only +/- Confusion
0%
PPS Score Level:
Palliative Performance Score Response
Palliative Performance Score Response: 60%
Physical Exam
-
General: Cachectic
HEENT: Normocephalic
Peripheral Vascular: No Edema
Skin: Warm
Neuro: AO x 3
Psych: Calm
Care Reviewed
Data Reviewed
Radiology procedure: Report Reviewed
Medical Tests: I reviewed
Reviewed with: Patient, Family and Physician
[2025-06-08 12:24] VITALS: BP 89/61; PULSE 95; O2SAT 97
[2025-06-08 12:35] VITALS: BP 89/61; PULSE 93; O2SAT 97
[2025-06-08 15:00] VITALS: BP 101/69
[2025-06-08 16:58] VITALS: BP 99/70
--- NOTE | 2025-06-08 17:32 | CM ---
PT ot indicate SNF.
Spoke with patient explained she is now inpatient IMM signed on chart.
Pt requested SNF referral of [facility]. Referral in care port
pT will need auth for SNF .
TT MD of above.
PLAN To Snf after located and auth obtained
[2025-06-08 23:00] VITALS: BP 85/50
[2025-06-09] MEDS: SYNTHROID 50 MCG PO (06:00)
[2025-06-09] MEDS: ROXICODONE 10 MG PO ×3 (06:08→14:19)
[2025-06-09 06:18] LABS: Hematocrit 25.1 % (37.0-47.0); Hemoglobin 8.9 g/dL (12.0-16.0); Mean Corp Hgb Conc. 35.5 g/dL (33.0-37.0); Mean Corpuscular Volume 87.8 fL (81.0-99.0); Platelet Count 229 10^3/uL (130-400); Red Cell Dist. Width 16.7 % (11.5-14.5)
[2025-06-09 07:00] VITALS: BP 85/54
--- NOTE | 2025-06-09 07:28 | W.PN.HOSP.TC ---
Addendum entered and electronically signed by Ruiz Lepe MD 06/09/25 14:23:
Hypokalemia, resolved
Addendum entered and electronically signed by Ruiz Lepe MD 06/09/25 13:45:
Total time spent on d/c = 38 min. This included today's physical exam, progress note, review of laboratory and diagnostic data, preparation of discharge documents and prescriptions, and discussions about the pt's hospital course and discharge plan
with the patient and other medical office rep involved in the patient's care.
Addendum entered and electronically signed by Ruiz Lepe MD 06/09/25 13:21:
Bifascicular block
Original Note:
Today's Communication/Plan
-
d/c
Assessment / Plan
Assessment / Plan
Gen: NAD, AAOx3, appears chronically ill and malnourised.
Eyes: EOMI, PERRLA, no scleral icterus.
Neck: supple.
CV: remains RRR, +S1/S2, no m/r/g.
Resp: CTAB anteriorly, no rales, wheezes, or rhonchi.
Abd: +BS, soft, NT, ND
Skin: No rashes.
Neuro: CN 2-12 intact, non-focal.
Psych: Normal mood and affect.
CT brain: There are changes of mild cortical atrophy and chronic ischemic disease with no acute findings.
CT L-spine:
1. LARGE 15 cm ACUTE SOFT TISSUE HEMATOMA in the midline subcutaneous fat of the lower back overlying the L2-L5 lumbar spinous processes.
2. Severe multilevel lumbar discogenic degenerative disease.
3. Chronic superior endplate fracture of T11 with moderate loss of vertebral body height and vertebral body sclerosis.
4. Chronic superior endplate fractures of T12 and L1 with mild loss of height.
5. Mild to moderate central canal stenosis at L1/L2 and L3/L4.
6. Severe bilateral neural foraminal narrowing at L3/L4.
7. Transitional lumbosacral vertebral segment (partial sacralization of L5).
CT C-spine: No evidence of acute fracture or dislocation.
Fall:
-likely due to acute toxic encephalopathy (transient, present at the time of the fall, now resolved) related to marijuana use
-imaging above
-PT/OT
-pain control for neck pain
Acute blood loss anemia:
-due to traumatic hematoma
-s/p 2U pRBCs
-case discussed over [facility] with neurosurgery on 06/08/25, no surgical intervention indicated
Other problems:
PBC: cont ursodiol
Hypothyroidism: Cont Levoxyl
Chronic hypotension: cont Midodrine
GERD: Cont PPI
Anxiety/depression: cont Klonopin/Effexor
Chronic pain syndrome, chronic opioid use with dependence: oxycodone PRN
HLD: cont Zetia
Chronic HFpEF: holding lasix with hypotension. FR. Unable to restart Lasix with hypotension.
Palliative care saw the pt 06/08, GOC are treatment oriented and rehabilitative.
FULL/SCDs
Medically cleared for d/c, case management aware.
Anticipated Discharge: Today
Subjective/Interval History
-
Date of Service: June 09, 2025
No new complaints.
Objective Data
-
Labs:
Laboratory Results
06/09/25
05:59
WBC 7.1
Hgb 8.9 L
Hct 25.1 L
Plt Count 229
Vital Signs:
Vital Signs
Temp Pulse Resp BP Pulse Ox
99.0 F 88 16 85/50 98
06/08/25 23:00 06/08/25 23:00 06/08/25 23:00 06/08/25 23:00 06/08/25 23:00
I&O
06/08/25 06/09/25 06/10/25
06:59 06:59 06:59
Intake Total 740 / 740 870 / 870
Output Total 100 / 100
Balance 740 / 740 770 / 770
[2025-06-09] MEDS: PROTONIX 40 MG PO (08:28)
[2025-06-09] MEDS: THIAMINE INJECTION 200 MG IV (08:28)
[2025-06-09] MEDS: FOLVITE 1 MG PO (08:29)
[2025-06-09] MEDS: URSO 500 MG PO (08:29)
[2025-06-09] MEDS: ZETIA 10 MG PO (08:29)
[2025-06-09] MEDS: VITAMIN D3 (cholecalciferol) 50 MCG PO (08:29)
[2025-06-09] MEDS: EFFEXOR XR 150 MG PO (08:29)
[2025-06-09 10:38] VITALS: BMI 19.5
--- NOTE | 2025-06-09 11:22 | STATUS ---
SITUATION:
BACKGROUND:
ASSESSMENT:
RECOMMENDATION:
--- NOTE | 2025-06-09 11:23 | CM ---
Addendum entered by July Rojas 06/09/25 14:06:
will transport
Addendum entered by July Rojas 06/09/25 13:47:
Call from [employer] - auth approved for [facility]
start 06/09/25-06/13/25, NRD 06/13/25
call with updates to [phone]
AUTH APPROVAL #: [id number]
TT hospitalist - auth information given to Marce at [facility]
PLAN: [facility] TODAY
Report #: [phone]
Fax #: [phone]
to transport, or they may opt to do wc van cost explained
Addendum entered by July Rojas 06/09/25 13:25:
Information given to [employer]. He states he will call CM back with auth
Addendum entered by July Rojas 06/09/25 13:01:
CM rec call from Marce at [facility] - bed available today & can accept
TT hospitalist, notified patient agreeable
IMM explained & signed. In chart
[facility] NPI #: [id number]
Dr. Kimberly Cummins NPI #: [id number]
CM called insurance and spoke to [employer]
Original Note:
PT rec SNF
referral in [facility] for [facility]
patient seen at bedside
patient prefers [facility], left message with Marce at [facility] - await call back regarding if they have bed availability
PLAN: SNF pending bed availability, will need ins auth once bed secured
[2025-06-09 12:02] VITALS: BP 122/71
--- NOTE | 2025-06-09 13:09 | PN.CDI ---
CDI
- -
CDI:
Physician Documentation Request
Admit Date: 06/07/25 09:03
Dear Doctor,
Please review the following and provide your response in the progress notes.
Clinical Indicators:
The diagnosis of Bifascicular block was included in the signed 06/06 EKG
- 06/06 EKG 'Bifascicular block'
- Right bundle branch block
- Left anterior fascicular block
Please indicate in your progress notes if you are in agreement that the above diagnosis is valid for this patient:
____ - Bifascicular block is a valid diagnosis (Please include it in your progress notes)
____ - Bifascicular block is not a valid diagnosis for this patient
____ - Bifascicular block is not yet confirmed but remains a suspected condition
____ - Other
Use of terms such as suspected, likely, concern for, or probable are acceptable for a diagnosis that is being evaluated, monitored or treated as if it exists and can be coded in the inpatient setting, when documented at the time of discharge.
Thank you,
Arian Torrez RN
CDI Specialist
Please use your independent medical judgment in providing your response.
[2025-06-09 14:18] VITALS: BP 115/73
[2025-06-09 14:18] LABS: Blood Urea Nitrogen 16 mg/dl (7-17); Calcium 7.8 mg/dl (8.4-10.2); Carbon Dioxide 31 mmol/L (22-30); Chloride 102 mmol/L (98-107); Estimated Creatinine Clearance 65 ml/min; Glucose 125 mg/dl (70-99); Potassium 3.6 mmol/L (3.5-5.1); Sodium 133 mmol/L (135-145); eGFR > 60.00
--- NOTE | 2025-06-09 14:38 | W.DCSUMMARY ---
Discharge Summary
Discharge Data
Date of Admission: 06/06/25
Date of Discharge: 06/09/25
-
Pending Results: No
Hospital Course
Primary diagnoses:
Fall likely due to acute toxic encephalopathy (transient, present at the time of the fall, now resolved) related to marijuana use
Acute blood loss anemia due to traumatic hematoma
Secondary diagnoses:
Hypokalemia
Bifascicular block
Primary biliary cirrhosis
Hypothyroidism
Chronic hypotension
Anxiety
Gastroesophageal reflux disease
Depression
Chronic pain syndrome, chronic opioid use with dependence
Hyperlipidemia
Chronic heart failure with preserved ejection fraction
Consultants:
Palliative care
Imaging:
CT brain: There are changes of mild cortical atrophy and chronic ischemic disease with no acute findings.
CT L-spine:
1. LARGE 15 cm ACUTE SOFT TISSUE HEMATOMA in the midline subcutaneous fat of the lower back overlying the L2-L5 lumbar spinous processes.
2. Severe multilevel lumbar discogenic degenerative disease.
3. Chronic superior endplate fracture of T11 with moderate loss of vertebral body height and vertebral body sclerosis.
4. Chronic superior endplate fractures of T12 and L1 with mild loss of height.
5. Mild to moderate central canal stenosis at L1/L2 and L3/L4.
6. Severe bilateral neural foraminal narrowing at L3/L4.
7. Transitional lumbosacral vertebral segment (partial sacralization of L5).
CT C-spine: No evidence of acute fracture or dislocation.
Hospital course: 65-year-old female who presented with a chief complaint of fall as outlined in the H&P done on admission. Her fall was likely due to acute toxic encephalopathy (transient, present at the time of the fall, now resolved) related to
marijuana use. Imaging above. Patient was seen in consultation by physical therapy and is being discharged to a long term facility. Patient also had acute blood loss anemia due to traumatic hematoma. She received 2 units of packed red blood
cells. The case was discussed over [facility] with neurosurgery on 06/08/25 and no surgical intervention was indicated.
Discharge Plan
-
Patient Disposition: Longterm/SNF
Discharge Diagnosis/Procedures: Fall likely due to acute toxic encephalopathy (transient, present at the time of the fall, now resolved) related to marijuana use
Condition: Fair
Diet: Regular and Other diet
Additional Diets: fluid restrict to 1500cc/day
Activity: With assistance
Driving Restrictions: No driving
Specialty Instructions: Weigh Daily- Call MD for wt gain/loss 3 lbs overnight/5 lbs in 1 week
Referrals:
Mohsen Mercado MD [Family Provider, [facility]] - in less than 1 week
Prescriptions:
Continued
ursodiol 500 MG tablet
500 mg PO BID
omeprazole 40 MG capsule,delayed release(DR/EC)
40 mg PO DAILY
cholecalciferol (vitamin D3) [Vitamin D3] 50 mcg (2,000 unit) Capsule
50 mcg PO DAILY Qty: 0
levothyroxine 50 MCG tablet
50 mcg PO DAILY
ezetimibe [Zetia] 10 mg Tablet
10 mg PO DAILY
venlafaxine [Effexor XR] 150 mg Capsule,Extended Release 24hr
150 mg PO DAILY
midodrine 5 mg Tablet
10 mg PO TID@0800,1300,1800 30 Days Qty: 180 0RF
hydrocodone-acetaminophen 5-325 mg Tablet
1 tab PO TIDPRN PRN (Reason: severe pain) Qty: 6 0RF
clonazepam [Klonopin] 0.5 mg Tablet
0.5 mg PO BIDPRN PRN (Reason: anxiety) Qty: 6 0RF
Discontinued
furosemide 20 mg Tablet
20 mg PO SUMOWESA
Discharge Orders:
Discharge Patient (As Directed); Ordered 06/09/25
Ordered By: Ruiz Lepe
Discharge Date and Time
Print Language: IRISH
== END 2025-06-09 14:50 | DRG 896 ==
LOC: 3 WEST ACU 09:03
PROVIDERS: Nurse Practitioner; ADMITTING PHYSICIAN Hospitalist; ATTENDING PHYSICIAN Internal Medicine; CONSULT PHYSICIAN Nurse Practitioner Gerontology; EMERGENCY PHYSICIAN Emergency Medicine; FAMILY PHYSICIAN Family Medicine
PROC: 30233N1 Transfusion of Nonautologous Red Blood Cells into Peripheral Vein, Percutaneous Approach (ICD-10-PCS; 2025-06-07)
DX: F12.90 Cannabis use, unspecified, uncomplicated (principal); G92.9 Unspecified toxic encephalopathy; D62 Acute posthemorrhagic anemia; R64 Cachexia; I50.32 Chronic diastolic (congestive) heart failure; F11.20 Opioid dependence, uncomplicated; I45.2 Bifascicular block; S30.0XXA Contusion of lower back and pelvis, initial encounter; S01.01XA Laceration without foreign body of scalp, initial encounter; E03.9 Hypothyroidism, unspecified; F32.A Depression, unspecified; F41.9 Anxiety disorder, unspecified; D69.6 Thrombocytopenia, unspecified; M19.90 Unspecified osteoarthritis, unspecified site; R54 Age-related physical debility; I11.0 Hypertensive heart disease with heart failure; E87.6 Hypokalemia; I95.89 Other hypotension; G89.4 Chronic pain syndrome; K21.9 Gastro-esophageal reflux disease without esophagitis; E78.00 Pure hypercholesterolemia, unspecified; K74.3 Primary biliary cirrhosis; R26.2 Difficulty in walking, not elsewhere classified; W10.8XXA Fall (on) (from) other stairs and steps, initial encounter; Y93.01 Activity, walking, marching and hiking; Y92.008 Other place in unspecified non-institutional (private) residence as the place of occurrence of the external cause; Z87.01 Personal history of pneumonia (recurrent); Z87.19 Personal history of other diseases of the digestive system; Z98.84 Bariatric surgery status; Z90.81 Acquired absence of spleen; Z79.890 Hormone replacement therapy; Z88.8 Allergy status to other drugs, medicaments and biological substances; Z88.0 Allergy status to penicillin; Z91.013 Allergy to seafood
CPT/HCPCS: 70450; 72125; 72131; 80048; 81003; 81015; 82607; 82728; 82746; 83540; 83550; 83615; 85025; 85027; 85045; 86850; 86900; 86901; 86920; 87086; 90715; 93005; 97163; 97167; P9016

== ENCOUNTER → 2025-06-13 12:12 | Outpatient (REF) | payer OTHER, SELFPAY ==
[2025-06-13 12:49] LABS: Hematocrit 30.4 % (37.0-47.0); Hemoglobin 9.9 g/dL (12.0-16.0); Mean Corp Hgb Conc. 32.6 g/dL (33.0-37.0); Mean Corpuscular Volume 96.8 fL (81.0-99.0); Nucleated Red Blood Cells % 0 %; Platelet Count 430 10^3/uL (130-400); Red Cell Dist. Width 16.5 % (11.5-14.5)
[2025-06-13 14:34] LABS: Blood Urea Nitrogen 14 mg/dl (7-17); Calcium 7.5 mg/dl (8.4-10.2); Carbon Dioxide 28 mmol/L (22-30); Chloride 100 mmol/L (98-107); Glucose 73 mg/dl (70-99); Potassium 3.8 mmol/L (3.5-5.1); Sodium 132 mmol/L (135-145); eGFR > 60.00
== END ==
LOC: OLABP 12:12
PROVIDERS: ATTENDING PHYSICIAN Family Medicine
DX: D62 Acute posthemorrhagic anemia (principal); E78.5 Hyperlipidemia, unspecified; E03.9 Hypothyroidism, unspecified; F41.9 Anxiety disorder, unspecified; G89.4 Chronic pain syndrome; G92.9 Unspecified toxic encephalopathy; I48.0 Paroxysmal atrial fibrillation
CPT/HCPCS: 36415; 80048; 85025

== ENCOUNTER → 2025-06-17 09:36 | Outpatient (REF) | payer OTHER, SELFPAY ==
[2025-06-17 12:29] LABS: Blood Urea Nitrogen 14 mg/dl (7-17); Calcium 8.0 mg/dl (8.4-10.2); Carbon Dioxide 29 mmol/L (22-30); Chloride 102 mmol/L (98-107); Glucose 74 mg/dl (70-99); Potassium 3.8 mmol/L (3.5-5.1); Sodium 133 mmol/L (135-145); eGFR > 60.00
== END ==
LOC: OLABP 09:36
PROVIDERS: ATTENDING PHYSICIAN Family Medicine
DX: M62.59 Muscle wasting and atrophy, not elsewhere classified, multiple sites (principal); D62 Acute posthemorrhagic anemia; E78.5 Hyperlipidemia, unspecified; F32.A Depression, unspecified; F41.9 Anxiety disorder, unspecified; G89.4 Chronic pain syndrome; G92.9 Unspecified toxic encephalopathy; I45.6 Pre-excitation syndrome; I48.0 Paroxysmal atrial fibrillation; I50.30 Unspecified diastolic (congestive) heart failure; I95.9 Hypotension, unspecified; K21.9 Gastro-esophageal reflux disease without esophagitis; R26.2 Difficulty in walking, not elsewhere classified; R63.6 Underweight; S01.01XD Laceration without foreign body of scalp, subsequent encounter; W10.9XXD Fall (on) (from) unspecified stairs and steps, subsequent encounter
CPT/HCPCS: 36415; 80048

== ENCOUNTER → 2025-06-21 13:06 | Outpatient (REF) | payer OTHER, SELFPAY ==
[2025-06-21 13:33] LABS: Blood Urea Nitrogen 16 mg/dl (7-17); Calcium 7.9 mg/dl (8.4-10.2); Carbon Dioxide 29 mmol/L (22-30); Chloride 105 mmol/L (98-107); Glucose 58 mg/dl (70-99); Potassium 4.6 mmol/L (3.5-5.1); Sodium 133 mmol/L (135-145); eGFR > 60.00
== END ==
LOC: OLABP 13:06
PROVIDERS: ATTENDING PHYSICIAN Family Medicine
DX: I48.0 Paroxysmal atrial fibrillation (principal); D62 Acute posthemorrhagic anemia; E03.9 Hypothyroidism, unspecified; E78.5 Hyperlipidemia, unspecified; F41.9 Anxiety disorder, unspecified
CPT/HCPCS: 36415; 80048